=== PATIENT | male | born 1980 | race Hispanic/Latino ===

== ENCOUNTER 2018-11-17 07:34 | Day surgery (SDC) | payer BC ==
[2018-11-15 17:18] VITALS: BP 152/83
[2018-11-17] VITALS (15 sets, daily range): BP systolic 114–150; BP diastolic 64–91
[~2018-11-17] VITALS: Ht 177.8 cm; Wt 145.7 kg
[2018-11-17] MEDS: CEFAZOLIN SODIUM 1 GM VIAL IVP SCH ×2 (06:00→09:45)
[~2018-11-17 07:34] MED LIST: ATOR10 PO; SOLI5 PO; ZOLP5TAB2 PO
[2018-11-17] MEDS ORDERED: LACTATED RINGERS 1000ML 1,000 ML IV ONE (08:58)
[2018-11-17] MEDS ORDERED: BACITRACIN 28.4 GM OINT TP ONE (09:30)
[2018-11-17] MEDS ORDERED: PROPOFOL 10 MG/ML 20ML VIAL IV ONE (09:37)
[2018-11-17] MEDS ORDERED: FENTANYL CITRATE PF 50 MCG/1 ML 2ML VIAL ONE (09:37)
[2018-11-17] MEDS ORDERED: MIDAZOLAM HCL 1 MG/ML 2ML VIAL ONE (09:37)
[2018-11-17] MEDS ORDERED: ONDANSETRON HCL 4 MG/2 ML VIAL ONE (09:37)
[2018-11-17] MEDS ORDERED: DEXAMETHASONE SOD PHOSPHATE 10MG/ML 1ML VIAL ONE (09:37)
[2018-11-17] MEDS ORDERED: LIDOCAINE PF 2% 5ML ABBOJECT ONE (09:37)
[2018-11-17] MEDS ORDERED: ROCURONIUM 10MG/1ML SYR 10 MG/ML ML ONE (09:39)
[2018-11-17] MEDS: BUPIVACAINE/PF 0.25% 30ML VIAL IJ ONE ×2 (09:51→10:12)
[2018-11-17] MEDS ORDERED: KETOROLAC TROMETHAMINE 30MG/ML ONE (10:52)
[2018-11-17] MEDS ORDERED: MORPHINE SULFATE 2 MG/ML 1ML SYG ONE (10:52)
== END 2018-11-17 12:45 | disposition home or self-care (01) ==
LOC: DAH 07:34
PROVIDERS: ATTEND Urology
DX: N47.1 Phimosis (principal); N48.89 Other specified disorders of penis; E66.9 Obesity, unspecified; Z79.899 Other long term (current) drug therapy; Z87.891 Personal history of nicotine dependence; Z68.42 Body mass index [BMI] 45.0-49.9, adult; Z72.89 Other problems related to lifestyle; Z82.49 Family history of ischemic heart disease and other diseases of the circulatory system; Z82.3 Family history of stroke
CPT/HCPCS: 54161; 54300; 88304; J0690; J1100; J1885; J2001; J2250; J2405; J2704; J3010; J3490; J7120